=== PATIENT | female | born 1990 | race Caucasian/White ===

== ENCOUNTER 2020-06-09 11:43 | Emergency (ER) | payer BC, SELFPAY ==
[2020-06-09 11:46] VITALS: BP 149/92; PULSE 112; RESP 20; TEMP 36.6; O2SAT 99; BMI 31.6
--- NOTE | 2020-06-09 11:57 | HMH.EDUTC ---
[facility] [place] Clinical Impression: Exposure to COVID-19 virus Qualifiers: Weeks of gestation: 25 weeks Qualified Code(s): Z3A.25 - 25 weeks gestation of Disposition: Home, Self-Care Condition on Discharge: Good Instructions: Preventing the Spread of Coronavirus Discharge Instructions Additional Instructions: You have been tested for COVID19. Please isolate yourself as if you are positive until test results received. Referrals: Gerardo Vitale [Primary Care Provider] - Time of Disposition: 12:05 Medical Decision Making - Ayan Inquiry Pt receiving controlled substance: No Vital Signs: 06/09/20 11:46 Temperature 97.9 F Temperature Source Oral Pulse Rate [Radial] 112 H Respiratory Rate 20 Blood Pressure [Right Arm] 149/92 H Blood Pressure Mean [Right Arm] 111 Blood Pressure Source [Right Arm] Automatic Cuff Blood Pressure Position [Right Arm] Sitting 02 Sat by Pulse Oximetry 99 Oxygen Delivery Method Room Air Orders (Tests/Meds): ORDERS Category Date Time Status Covid-19 Nasal PCR ([facility]) Routine Lab 06/09/20 11:50 Received [facility] [place] HPI - General Stated complaint: covid test Time Seen by Provider: 06/09/20 11:58 Mode of Arrival: Ambulatory Source of Information: Patient Limitations: No Limitations Description of Symptoms (Recalled from Triage Doc. by RN): tested positive for covid on . She began to have a low grade fever and congestion. HEENT Symptoms (Recalled from RN notes): Yes Resp Symptoms (Recalled from RN notes): No Skin Symptoms (Recalled from RN notes): No MS Symptoms (Recalled from RN notes): No Functional Status (Recalled from RN notes): wnl - History of Present Illness Provider Complaint: tested positive 06/07. She started having runny nose, congestion, fever last night. She has taken Tylenol. She is 25 weeks . Onset (ago): day(s) (2) Location: face Relieving factors: none Exacerbating factors: none Associated symptoms: cough Treatments prior to arrival: none - Related Data Home Medications Medication Instructions Recorded Confirmed Ethinyl Estradiol/Drospirenone 1 tab PO DAILY 05/19/18 06/30/19 [Ocella 3 mg-0.03 mg Tablet] Fluticasone Propionate [Flonase 2 spr NS DAILY 05/19/18 06/30/19 50mcg nasal spray 16gm] Loratadine [Claritin] 10 mg PO DAILY 05/19/18 06/30/19 Mometasone Furoate [Asmanex Hfa] 2 puffs PO BID 05/19/18 06/30/19 Previous Rx's Medication Instructions Recorded albuterol sulfate 90 mcg/actuation 1 inh INHALATION QID PRN #18 g 06/30/19 aerosol inhaler savcyklqkyeiola-dfdbogctogzkpdj-EO 10 ml PO Q4-6H PRN #240 ml 06/30/19 2 mg-30 mg-10 mg/5 mL oral syrup Allergies Allergy/AdvReac Type Severity Reaction Status Date / Time erythromycin base Allergy Mild Verified 06/30/19 16:57 [ERYTHROMYCIN BASE] Penicillins [PENICILLINS] Allergy Mild Verified 06/30/19 16:57 - Worker's Comp Is this a Worker's Comp case?: No [facility] History - Hepatitis A Screen Drug use history?: No High risk sexual behaviors?: No History of sexually transmitted infection?: No Currently employed?: No Childcare worker?: No Do you have indoor plumbing?: Yes Do you have electricity?: Yes Attestation statement:: This patient has been screened for Hepatitis A risk factors. I have reviewed the patient's past medical history: Yes Medical History: Reports:: Asthma Other Medical History: Reports: Other Laterality Cases: Bilateral: Other Amputation: No Fractures: No - Social History Smoking Status: Never smoker Alcohol Intake: never Occupational Status: employed Family Hx:: No significant family history ROS Obtained: Yes All systems reviewed & no additional complaints - Constitutional Constitutional: Reports body ache, Reports chills, Reports fever(s), Reports malaise - ENT Ears, Nose, Mouth, and Throat: Reports nasal congestion - Respiratory Respiratory: Yes cough Physical Exam -
[2020-06-09 12:10] VITALS: BP 149/92; PULSE 112; RESP 20; TEMP 36.6; O2SAT 99
--- NOTE | 2020-06-09 17:20 | PC.NURSE ---
PT CALLED AND NOTIFIED OF POSITIVE COVID RESULT
== END 2020-06-09 12:11 | disposition home or self-care (01) ==
PROVIDERS: Emergency Provider Physician Assistant; PCP Internal Medicine
DX: U07.1 COVID-19 (principal); Z3A.25 25 weeks gestation of pregnancy
CPT/HCPCS: 99201; U0003